=== PATIENT | male | born 1965 | race Two or more races ===

== ENCOUNTER 2024-08-16 15:45 | Inpatient (IN) | payer OTHER ==
[2024-08-16 16:51] VITALS: BMI 21.4
[2024-08-16] MEDS ORDERED: LOPERAMIDE HCL 2 MG CAPSULE PO PRN (17:35)
[2024-08-16] MEDS ORDERED: methaDONE HCL 10 MG TABLET (FOR DETOX USE ONLY) PO PRN (17:35)
[2024-08-16] MEDS ORDERED: BENZOCAINE/MENTHOL (CHLORASEPTIC ) LOZENGE MM PRN (17:35)
[2024-08-16] MEDS ORDERED: BENZONATATE 200 MG CAPSULE PO PRN (17:35)
[2024-08-16] MEDS ORDERED: IBUPROFEN 400 MG TABLET (FP) PO PRN (17:35)
[2024-08-16] MEDS ORDERED: DICYCLOMINE HCL 10 MG CAPSULE PO PRN (17:35)
[2024-08-16] MEDS ORDERED: BISMUTH SUBSALICYLATE 524 MG/30 ML PO PRN (17:35)
[2024-08-16] MEDS ORDERED: methaDONE HCL 10 MG TABLET (FOR DETOX USE ONLY) PO ONE (17:35)
[2024-08-16] MEDS ORDERED: MAGNESIUM HYDROX 2400MG/30ML ORAL SUSPENSION 30 ML CUP PO PRN (17:35)
[2024-08-16] MEDS ORDERED: guaiFENesin 600 MG TABLET.ER (FP) PO PRN (17:35)
[2024-08-16] MEDS ORDERED: MAG HYDROX/AL HYDROX/SIMETH 30 ML UNIT-DOSE CUP PO PRN (17:35)
[2024-08-16] MEDS ORDERED: ACETAMINOPHEN 325 MG TABLET (FP) PO PRN (17:35)
[2024-08-16] MEDS ORDERED: NALOXONE (NARCAN) HCL 4 MG/0.1 ML SPRAY NS PRN (17:35)
[2024-08-16] MEDS ORDERED: POLYETHYLENE GLYCOL (HEALTHYLAX) 3350 17 GM PACKET PO PRN (17:35)
[2024-08-16] MEDS ORDERED: NICOTINE POLACRILEX 2 MG GUM BUC PRN (17:35)
[2024-08-16] MEDS ORDERED: ONDANSETRON *ODT* 4 MG TABLET SL PRN (17:35)
[2024-08-16] MEDS ORDERED: methaDONE HCL 10 MG TABLET (FOR DETOX USE ONLY) ONE (19:54)
[2024-08-16] MEDS: methaDONE HCL 10 MG TABLET (FOR DETOX USE ONLY) PO ONE (20:27)
[2024-08-16] MEDS: MELATONIN 5 MG TABLETS PO SCH (21:12)
[2024-08-16] MEDS: THIAMINE 100 MG TABLET PO SCH (21:12)
[2024-08-16] MEDS: METHOCARBAMOL 500 MG TABLET PO PRN (21:12)
[2024-08-16] MEDS: IBUPROFEN 600 MG TABLET (FP) PO PRN (21:12)
[2024-08-16] MEDS: cloNIDine HCL 0.1 MG TABLET PO PRN (21:12)
[2024-08-17] MEDS: hydrOXYzine PAMOATE 25 MG CAPSULE (FP) PO PRN (10:01)
[2024-08-17] MEDS: PRENATAL VITAMINS W/ FOLIC ACID TABLET (FP) PO SCH (10:01)
[2024-08-17] MEDS: NICOTINE 7 MG/24 HOURS TOPICAL PATCH TD SCH (10:03)
[2024-08-17 11:55] LABS: HEMATOCRIT 41.2 % (35.4-49); HEMOGLOBIN 13.2 GM/dL (11.7-16.9); MCH 29.4 pg (25.7-33.7); MEAN PLT VOLUME 7.9 fl (7.5-11.1); PLATELET COUNT 268 10^3/uL (134-434); RBC 4.48 M/mm3 (4.00-5.60); RDW 13.6 % (11.9-15.9); WHITE BLOOD COUNT 6.4 K/mm3 (4.0-10.0)
[2024-08-17 12:19] LABS: CHLORIDE 106 mmol/L (98-107); POTASSIUM 4.5 mmol/L (3.5-5.1); SODIUM 137 mmol/L (136-145)
[2024-08-17 12:24] LABS: GLUCOSE,RANDOM 166 mg/dL (74-106)
[2024-08-17 12:25] LABS: CALCIUM 8.6 mg/dL (8.5-10.1)
[2024-08-17 12:26] LABS: ALBUMIN 3.3 g/dl (3.4-5.0); ANION GAP 5 mmol/L (4-13); BLOOD UREA NITROGEN 20.3 mg/dL (7-18); CO2 26 mmol/L (21-32)
[2024-08-17 12:29] LABS: BILIRUBIN,TOTAL 0.5 mg/dL (0.2-1); CREATININE 1.5 mg/dL (0.55-1.3); SGOT/AST 20 U/L (15-37); SGPT/ALT 20 U/L (13-61)
[2024-08-17 12:30] LABS: TOT PROT 6.1 g/dl (6.4-8.2)
[2024-08-17 12:31] LABS: ALK PHOS 68 U/L (45-117)
[2024-08-18] MEDS: methaDONE HCL 10 MG TABLET (FOR DETOX USE ONLY) PO ONE (10:02)
[2024-08-19] MEDS: METOPROLOL TARTRATE 25 MG TABLET (FP) PO ONE (13:28)
[2024-08-19] MEDS: cloNIDine HCL 0.1 MG TABLET PO PRN (13:39)
[2024-08-20] MEDS: methaDONE HCL 10 MG TABLET (FOR DETOX USE ONLY) PO ONE (09:16)
[2024-08-21 09:04] VITALS: BP 120/73; PULSE 85; RESP 20; TEMP 96.9
== END 2024-08-21 11:52 | disposition other institution (70) | DRG 773 ==
LOC: YASAS 15:45 → Y3N 20:15
PROVIDERS: ADMIT Allergy & Immunology; ATTEND Allergy & Immunology
PROC: HZ2ZZZZ Detoxification Services for Substance Abuse Treatment (ICD-10-PCS; principal; 2024-08-16)
DX: F11.23 Opioid dependence with withdrawal (principal); F14.20 Cocaine dependence, uncomplicated; F17.210 Nicotine dependence, cigarettes, uncomplicated; N28.9 Disorder of kidney and ureter, unspecified; R73.9 Hyperglycemia, unspecified; Z59.02 Unsheltered homelessness; Z56.0 Unemployment, unspecified
CPT/HCPCS: 36415; 80053; 80305; 80307; 82962; 83036; 85027; 86780; 87811; 93005; 93010

== ENCOUNTER 2024-08-21 12:00 | Inpatient (IN) | payer OTHER ==
[2024-08-21] MEDS ORDERED: NICOTINE POLACRILEX 4 MG LOZENGE BC PRN (15:53)
[2024-08-21] MEDS ORDERED: MAG HYDROX/AL HYDROX/SIMETH 30 ML UNIT-DOSE CUP PO PRN (15:53)
[2024-08-21] MEDS ORDERED: MAGNESIUM HYDROX 2400MG/30ML ORAL SUSPENSION 30 ML CUP PO PRN (15:53)
[2024-08-21] MEDS ORDERED: BENZONATATE 200 MG CAPSULE PO PRN (15:53)
[2024-08-21] MEDS ORDERED: POLYETHYLENE GLYCOL (HEALTHYLAX) 3350 17 GM PACKET PO PRN (15:53)
[2024-08-21] MEDS ORDERED: NICOTINE POLACRILEX 4 MG GUM BUC PRN (15:53)
[2024-08-21] MEDS ORDERED: NALOXONE HCL 0.4 MG/ML VIAL IVPUSH PRN (15:53)
[2024-08-21] MEDS ORDERED: IBUPROFEN 400 MG TABLET (FP) PO PRN (15:53)
[2024-08-21] MEDS ORDERED: NALOXONE (NARCAN) HCL 4 MG/0.1 ML SPRAY NS PRN (15:53)
[2024-08-21] MEDS ORDERED: METHOCARBAMOL 500 MG TABLET PO PRN (15:53)
[2024-08-21] MEDS ORDERED: guaiFENesin 600 MG TABLET.ER (FP) PO PRN (15:53)
[2024-08-21] MEDS ORDERED: BENZOCAINE/MENTHOL (CHLORASEPTIC ) LOZENGE MM PRN (15:53)
[2024-08-21] MEDS: IBUPROFEN 600 MG TABLET (FP) PO PRN (18:29)
[2024-08-21] MEDS: hydrOXYzine PAMOATE 25 MG CAPSULE (FP) PO PRN (18:29)
[2024-08-21] MEDS: MELATONIN 5 MG TABLETS PO SCH (21:13)
[2024-08-21] MEDS: THIAMINE 100 MG TABLET PO SCH (21:13)
[2024-08-22] MEDS: PRENATAL VITAMINS W/ FOLIC ACID TABLET (FP) PO SCH (10:16)
[2024-08-22] MEDS: BACLOFEN 10 MG TABLET (FP) PO SCH (21:11)
[2024-08-23] MEDS: ACETAMINOPHEN 325 MG TABLET (FP) PO PRN (06:58)
[2024-08-23] MEDS: cloNIDine HCL 0.1 MG TABLET PO ONE (06:58)
[2024-08-23] MEDS: amLODIPine BESYLATE 5 MG TABLET (FP) PO SCH (09:38)
[2024-08-26] MEDS: propRANOLol HCL 10 MG TABLET PO ONE (06:38)
[2024-08-27] MEDS: propRANOLol HCL 10 MG TABLET PO ONE (01:03)
[2024-08-29] MEDS: LOPERAMIDE HCL 2 MG CAPSULE PO PRN (13:14)
[2024-08-30] MEDS: NICOTINE 14 MG/24 HOURS TOPICAL PATCH TD PRN (10:41)
[2024-09-06] MEDS: LIDOCAINE 5% TOPICAL PATCH TP SCH (12:58)
[2024-09-06] MEDS: LIDOCAINE PATCH REMOVAL MC SCH (21:36)
[2024-09-07] MEDS: propRANOLol HCL 10 MG TABLET PO SCH ×2 (10:28→17:49)
[2024-09-07] MEDS ORDERED: propRANOLol HCL 10 MG TABLET PO SCH ×2 (18:00→22:00)
[2024-09-10 06:32] VITALS: RESP 17; TEMP 97.7
[2024-09-10] MEDS: propRANOLol HCL 10 MG TABLET PO ONE (07:24)
[2024-09-10 09:16] VITALS: BP 136/97; PULSE 86
== END 2024-09-10 10:02 | disposition home or self-care (01) | DRG 772 ==
LOC: YASAS 12:00 → Y3W 12:01
PROVIDERS: ADMIT Psychiatry & Neurology Pain Medicine; ATTEND Psychiatry & Neurology Pain Medicine
PROC: HZ42ZZZ Group Counseling for Substance Abuse Treatment, Cognitive-Behavioral (ICD-10-PCS; principal; 2024-08-21)
DX: F19.20 Other psychoactive substance dependence, uncomplicated (principal); F11.20 Opioid dependence, uncomplicated; F17.210 Nicotine dependence, cigarettes, uncomplicated; I10 Essential (primary) hypertension; M54.50 Low back pain, unspecified; G89.29 Other chronic pain; R60.0 Localized edema; Z59.02 Unsheltered homelessness
CPT/HCPCS: J0475